=== PATIENT | female | born 2005 | race Caucasian/White ===

== ENCOUNTER 2025-08-21 11:06 | Emergency (ER) | payer OTHER, SELFPAY ==
--- NOTE | 2025-08-21 12:10 | ED.URI ---
HPI - URI/Sore Throat General Chief Complaint: Upper Respiratory Infection Stated Complaint: Sinus Infection Symptoms Time Seen by Provider: 08/21/25 11:57 Source: patient and RN notes reviewed Mode of arrival: ambulatory Limitations: no limitations History of Present Illness HPI Narrative: 20-year-old female patient presents today with a week history of sore throat congestion cough postnasal drip, with a decreased taste and smell since yesterday. Denies fever or shortness of breath, known sick contacts. She has tried DayQuil, NyQuil, Flonase, and Aleve with mild short-term relief and currently rates her pain 11/01. Related Data Home Medications ?Medication ?Instructions ?Recorded ?Confirmed ?Last Taken ?Type desogestrel-e.estradiol 0.15 tablet 08/21/25 Unknown History mg-0.02 mg(21)/e.estrad 0.01 mg(5) tablet (Kariva (28)) escitalopram oxalate 10 mg tablet mg 08/21/25 Unknown History Allergies Allergy/AdvReac Type Severity Reaction Status Date / Time No Known Allergies Allergy Verified 08/21/25 11:21 [facility] Comments At time of signature, I have reviewed and agree with nursing past medical, surgical, social and family history unless otherwise noted. Please see nursing chart for further information. There is no relevant family history pertinent to the presenting complaint Exam Narrative: GENERAL: Well-appearing, well-nourished, and in no acute distress. HEAD: Normocephalic, atraumatic. EYES: EOMI. No redness or drainage. Conjunctivae normal. ENT: Mucous membranes pink and moist. Nares congested with rhinorrhea. TMs normal bilaterally. Throat mildly erythematous without edema or exudate. Uvula midline. NECK: Normal AROM. Supple. Bilateral anterior cervical chain lymphadenopathy. CHEST: No respiratory distress. Clear to auscultation. HEART: Regular rate and rhythm. No murmur appreciated. EXTREMITIES: Normal range of motion. No edema. SKIN: Warm, dry, no rash. Capillary refill normal. Normal skin turgor. NEURO: No focal deficits. Alert and oriented x3. Gait steady. PSYCH: Normal affect. No signs of depression or anxiety. Course Course Level of Care: Express Care Visit Vital Signs Vital signs: Vital Signs Temperature 98.3 F 08/21/25 12:25 Pulse Rate 88 08/21/25 12:25 Respiratory Rate 18 08/21/25 12:25 Blood Pressure 124/67 08/21/25 12:25 Pulse Oximetry 99 08/21/25 12: Temperature 98.3 F 08/21/25 12:25 Pulse Rate 88 08/21/25 12:25 Respiratory Rate 18 08/21/25 12:25 Blood Pressure 124/67 08/21/25 12:25 Pulse Oximetry 99 08/21/25 12:25 Reviewed MDM - URI/Sore Throat MDM Narrative Medical decision making narrative: 20-year-old female patient presents today with a week history of sore throat congestion cough postnasal drip, with a decreased taste and smell since yesterday. Denies fever or shortness of breath, known sick contacts. She has tried DayQuil, NyQuil, Flonase, and Aleve with mild short-term relief and currently rates her pain 1/10. Upon exam, patient has some nasal congestion with rhinorrhea and a mildly erythematous throat. Symptoms likely viral in etiology. Discussed aivl-mrc-[id number] medication use and duration of illness. No prescription medications indicated at this time. Anticipatory guidance given. Vital signs stable. ED precautions given. Differential Diagnosis Differential diagnosis: Likely upper respiratory infection, otitis media, sinusitis, viral infection and pharyngitis Critical Care Time Critical Care Time Critical Care Time: No Discharge Plan Discharge Clinical Impression: Upper respiratory infection Qualifiers: URI type: unspecified URI Qualified Code(s): J06.9 - Acute upper respiratory infection, unspecified Patient Disposition: Home Condition: Stable Instructions: Upper Respiratory Infection (DC) Additional Instructions: Your symptoms are likely due to a viral illness, which is not treated with antibiotics. Virus symptoms can last for up to 7-10days. Take Tylenol or ibuprofen for pain or fever. Consider Sudafed (pseudoephedrine) to help with your nasal congestion and sinus pressure. Continue Flonase and Aleve. Rest and stay hydrated. Follow up with your PCP in 5-7 days if symptoms are not improving. Go to the ER immediately if you develop shortness of breath, difficulty swallowing, or any other concerning symptoms. Patient Language: Citizen Of [place] Prescriptions: No Action desog-e.estradiol/e.estradiol [Kariva (28)] 0.15-0.02 mgx21 /0.01 mg x 5 tablet escitalopram oxalate 10 mg tablet Follow-up/Referrals: PHYSICIAN,DIRECTOR PROJECT MANAGEMENT [Primary Care Provider, Internal Medicine] Time of Disposition: 12:12
[2025-08-21 12:25] VITALS: BP 124/67; PULSE 88; RESP 18; TEMP 36.8; O2SAT 99
== END 2025-08-21 12:20 | disposition home or self-care (01) ==
PROVIDERS: Emergency Provider Nurse Practitioner
DX: J06.9 Acute upper respiratory infection, unspecified (principal)
CPT/HCPCS: 99202; G0463